=== PATIENT | female | born 1975 | race Caucasian/White ===

== ENCOUNTER 2019-11-08 16:55 | Emergency (ER) | payer OTHER ==
[~2019-11-08] VITALS: Ht 160 cm; Wt 65.8 kg
[~2019-11-08 16:55] MED LIST: PSEU30TA2 PO
[2019-11-08 17:11] VITALS: BP 112/89
[2019-11-08] MEDS ORDERED: IBUPROFEN 600 MG TABLET PO ONE ×2 (17:24→17:30)
== END 2019-11-08 17:35 | disposition home or self-care (01) ==
LOC: ER 16:55
DX: J01.90 Acute sinusitis, unspecified (principal); Z98.890 Other specified postprocedural states; Z79.899 Other long term (current) drug therapy

== ENCOUNTER 2021-05-04 08:48 | Emergency (ER) | payer MEDICAID, OTHER ==
[~2021-05-04] VITALS: Ht 160 cm; Wt 65.8 kg
[2021-05-04] MEDS ORDERED: GUAIFENESIN/D-METHORPHAN HB 5 ML UDC ONE (09:21)
[2021-05-04] MEDS ORDERED: GUAIFENESIN/D-METHORPHAN HB 5 ML UDC PO ONE (09:30)
[2021-05-04 10:05] VITALS: BP 135/75
[2021-05-04] MEDS ORDERED: GUAI1TBM19 PO (10:05)
[2021-05-04] MEDS ORDERED: PRED50TA PO (10:05)
[2021-05-04] MEDS ORDERED: BENZ-13 PO (10:05)
== END 2021-05-04 10:18 | disposition home or self-care (01) ==
LOC: ER 09:00
DX: J06.9 Acute upper respiratory infection, unspecified (principal); Z20.822 Contact with and (suspected) exposure to COVID-19
CPT/HCPCS: 71045; 87426; 99284; C9803

== ENCOUNTER 2023-04-20 23:36 | Emergency (ER) | payer MEDICAID, OTHER ==
[~2023-04-20] VITALS: Ht 160 cm; Wt 66.7 kg
[~2023-04-20 23:36] MED LIST changes: +BENZ-13 PO; +GUAI1TBM19 PO; +PRED50TA PO
[2023-04-21] MEDS ORDERED: IV NS 0.9% 1,000 ML BAG IV ONE
[2023-04-21] MEDS ORDERED: ONDANSETRON HCL/PF 4 MG/2 ML VIAL IVP ONE
[2023-04-21] MEDS ORDERED: KETOROLAC TROMETHAMINE INJ 30 MG/ML VIAL ONE (00:05)
[2023-04-21] MEDS ORDERED: ONDANSETRON HCL/PF 4 MG/2 ML VIAL ONE (00:05)
[2023-04-21 00:19] LABS: BASOPHILS % (AUTO) 0.2 % (0.0-2.0); EOSINOPHILS # (AUTO) 0.1 K/uL (0.0-0.7); EOSINOPHILS % (AUTO) 1.4 % (0.0-6.0); HEMATOCRIT 36 % (33-45); HEMOGLOBIN 11.9 g/dL (11.5-14.8); LYMPHOCYTES # (AUTO) 2.7 K/uL (0.8-4.8); LYMPHOCYTES % (AUTO) 40.6 % (20.0-44.0); MEAN CORPUSCULAR HEMOGLOBIN 28 PG (26.0-33.0); MEAN CORPUSCULAR HGB CONC 33 g/dl (31.0-36.0); MEAN CORPUSCULAR VOLUME 85 fL (82-100); MONOCYTES # (AUTO) 0.4 K/uL (0.1-1.30); MONOCYTES % (AUTO) 6.5 % (2.0-12.0); NEUTROPHILS # (AUTO) 3.4 K/uL (1.8-8.9); NEUTROPHILS % (AUTO) 51.3 % (43.0-81.0); PLATELET COUNT (AUTO) 232 K/uL (150-450); RED BLOOD CELL COUNT(AUTO) 4.23 MIL/uL (4.0-5.2); RED CELL DISTRIBUTION WIDTH 13.8 % (11.5-15.0); WHITE BLOOD COUNT (AUTO) 6.7 K/uL (4.3-11.0)
[2023-04-21] MEDS ORDERED: KETOROLAC TROMETHAMINE INJ 30 MG/ML VIAL IV ONE (00:30)
[2023-04-21 00:46] LABS: ALBUMIN 3.5 g/dL (3.4-5.0); BILIRUBIN,DIRECT 0.1 mg/dL (0.0-0.2); BILIRUBIN,TOTAL 0.2 mg/dL (0.2-1.0); CALCIUM, SERUM 9.2 mg/dL (8.5-10.1); CREATININE 0.7 mg/dL (0.6-1.3); POTASSIUM 3.8 mmol/L (3.5-5.1); TOTAL PROTEIN, SERUM 7.3 g/dL (6.4-8.2)
[2023-04-21 01:25] LABS: BILIRUBIN,URINE NEGATIVE (NEGATIVE); BLOOD, URINE NEGATIVE Ery/uL (NEGATIVE); COLOR,URINE YELLOW (YELLOW); KETONES,URINE NEGATIVE (NEGATIVE); LEUKOCYTE ESTERASE ,URINE 3+ (NEGATIVE); NITRITE, URINE NEGATIVE (NEGATIVE); PH,URINE 5.5 (5.0-8.0); PROTEIN,URINE NEGATIVE (NEGATIVE); UGLUCOSE NEGATIVE (NEGATIVE); UROBILINOGEN,URINE 0.2 EU/dL (0.2)
[2023-04-21 01:26] LABS: APPEARANCE,URINE SLIGHTLY CLOUDY (CLEAR)
[2023-04-21 01:29] LABS: ADD URINE CULTURE YES; BACTERIA,URINE Few /HPF (None Seen); RBC,URINE 0-2 /HPF (0-2); SQUAMOUS EPITHELIAL CELL,UR Few /HPF (None Seen); WBC,URINE 21-50 /HPF (0-3)
[2023-04-21 01:31] LABS: PREGNANCY TEST URINE QUAL NEGATIVE (NEGATIVE)
[2023-04-21] MEDS ORDERED: CEPH500C2 PO (04:40)
[2023-04-21] MEDS ORDERED: IBUP-1953 PO (04:40)
[2023-04-21 05:09] VITALS: BP 133/86; TEMP 98.2; O2SAT 99
== END 2023-04-21 05:35 | disposition home or self-care (01) ==
LOC: ER 23:39
DX: N39.0 Urinary tract infection, site not specified (principal); R10.32 Left lower quadrant pain
CPT/HCPCS: 99285; 74176; 96374; 71045; 96361; 96375; 85025; 80048; 87086; 83690; 80076; 84703; 81001; 36415; J1885; J2405; J7030

== ENCOUNTER → 2023-08-19 | Emergency (ER) | payer OTHER ==
[~2023-08-19] VITALS: Ht 160 cm; Wt 66.7 kg
[~2023-08-19] MED LIST changes: +CEPH500C2 PO; +IBUP-1953 PO
[2023-08-19 13:25] VITALS: BP 120/78; TEMP 98; O2SAT 98
== END | disposition home or self-care (01) ==
LOC: ER 12:37
DX: G56.92 Unspecified mononeuropathy of left upper limb (principal); Z98.890 Other specified postprocedural states; Z79.899 Other long term (current) drug therapy

== ENCOUNTER 2024-05-05 00:22 | Emergency (ER) | payer OTHER ==
[~2024-05-05] VITALS: Ht 160 cm; Wt 63.5 kg
[2024-05-05 02:34] VITALS: BP 131/82; TEMP 97.8; O2SAT 98
[2024-05-05] MEDS ORDERED: KETO10TA2 PO (03:00)
[2024-05-05] MEDS ORDERED: LIDO30AD10 TP (03:00)
[2024-05-05] MEDS ORDERED: IBUP-1957 PO (03:00)
[2024-05-05] MEDS ORDERED: CYCL10TA9 PO (03:00)
[2024-05-05] MEDS ORDERED: LIDOCAINE 5% (PATCH) 1 EA PATCH TP ONE (03:13)
[2024-05-05] MEDS ORDERED: ACETAMINOPHEN ES 500 MG TABLET ONE (03:13)
[2024-05-05] MEDS ORDERED: IBUPROFEN 400 MG TABLET ONE (03:14)
[2024-05-05] MEDS: IBUPROFEN 400 MG TABLET PO ONE (03:19)
[2024-05-05] MEDS: LIDOCAINE 5% (PATCH) 1 EA PATCH TP SCH (03:19)
[2024-05-05] MEDS: ACETAMINOPHEN ES 500 MG TABLET PO ONE (03:19)
== END 2024-05-05 03:20 | disposition home or self-care (01) ==
LOC: ER 00:25
DX: S20.229A Contusion of unspecified back wall of thorax, initial encounter (principal); R11.10 Vomiting, unspecified; Z79.52 Long term (current) use of systemic steroids; W10.8XXA Fall (on) (from) other stairs and steps, initial encounter; Y93.89 Activity, other specified; Y92.89 Other specified places as the place of occurrence of the external cause; Y99.8 Other external cause status

== ENCOUNTER 2024-08-24 17:27 | Emergency (ER) | payer BC, OTHER ==
[~2024-08-24] VITALS: Ht 165.1 cm; Wt 71.2 kg
[~2024-08-24 17:27] MED LIST changes: +CYCL10TA9 PO; +IBUP-1957 PO; +KETO10TA2 PO; +LIDO30AD10 TP
[2024-08-24 18:27] LABS: BASOPHILS % (AUTO) 0.3 % (0.0-2.0); EOSINOPHILS # (AUTO) 0.1 K/uL (0.0-0.7); EOSINOPHILS % (AUTO) 1.4 % (0.0-6.0); HEMATOCRIT 37 % (33-45); HEMOGLOBIN 12.2 g/dL (11.5-14.8); LYMPHOCYTES # (AUTO) 2.4 K/uL (0.8-4.8); LYMPHOCYTES % (AUTO) 40.4 % (20.0-44.0); MEAN CORPUSCULAR HEMOGLOBIN 28 PG (26.0-33.0); MEAN CORPUSCULAR HGB CONC 33 g/dl (31.0-36.0); MEAN CORPUSCULAR VOLUME 83 fL (82-100); MONOCYTES # (AUTO) 0.4 K/uL (0.1-1.30); MONOCYTES % (AUTO) 7.3 % (2.0-12.0); NEUTROPHILS % (AUTO) 50.6 % (43.0-81.0); PLATELET COUNT (AUTO) 230 K/uL (150-450); RED BLOOD CELL COUNT(AUTO) 4.41 MIL/uL (4.0-5.2); RED CELL DISTRIBUTION WIDTH 14.1 % (11.5-15.0)
[2024-08-24] MEDS ORDERED: PANTOPRAZOLE 40 MG VIAL ONE (18:30)
[2024-08-24 18:36] LABS: CALCIUM, SERUM 9.2 mg/dL (8.5-10.1); CARBON DIOXIDE 31 mmol/L (21-32); CHLORIDE 104 mmol/L (98-107); CREATININE 0.6 mg/dL (0.6-1.3); GLUCOSE 108 mg/dL (74-106); POTASSIUM 4.1 mmol/L (3.5-5.1); SODIUM SERUM 139 mmol/L (136-145); UREA NITROGEN, BLOOD 12 mg/dL (7-18)
[2024-08-24 18:41] LABS: ALANINE AMINOTRANSFERASE 20 U/L (12-78); ALBUMIN 3.5 g/dL (3.4-5.0); ALKALINE PHOSPHATASE 95 U/L (46-116); ASPARTATE AMINOTRANSFERASE 12 U/L (15-37); BILIRUBIN,DIRECT 0.1 mg/dL (0.0-0.2); BILIRUBIN,TOTAL 0.3 mg/dL (0.2-1.0); LIPASE 36 U/L (16-77); TOTAL PROTEIN, SERUM 7.3 g/dL (6.4-8.2)
[2024-08-24] MEDS: PANTOPRAZOLE 40 MG VIAL IV ONE (18:46)
[2024-08-24] MEDS ORDERED: PANT40TA2 PO (19:08)
[2024-08-24 19:24] VITALS: BP 133/82; TEMP 98.5; O2SAT 100
== END 2024-08-24 19:25 | disposition home or self-care (01) ==
LOC: ER 17:39
DX: I10 Essential (primary) hypertension (principal); R10.10 Upper abdominal pain, unspecified; Z79.1 Long term (current) use of non-steroidal anti-inflammatories (NSAID); Z79.52 Long term (current) use of systemic steroids; Z79.899 Other long term (current) drug therapy
CPT/HCPCS: 99285; 96374; 76705; 71045; 93005; 85025; 80048; 83690; 80076; 36415; 84484; 82962; J2470

== ENCOUNTER 2024-10-05 14:03 | Emergency (ER) | payer BC, OTHER ==
[~2024-10-05] VITALS: Ht 160 cm; Wt 67.6 kg
[~2024-10-05 14:03] MED LIST changes: +PANT40TA2 PO
[2024-10-05 14:46] LABS: PLATELET COUNT (AUTO) 250 K/uL (150-450); RED BLOOD CELL COUNT(AUTO) 4.71 MIL/uL (4.0-5.2); RED CELL DISTRIBUTION WIDTH 13.9 % (11.5-15.0); WHITE BLOOD COUNT (AUTO) 5.4 K/uL (4.3-11.0)
[2024-10-05] MEDS ORDERED: PANTOPRAZOLE 40 MG VIAL ONE (14:49)
[2024-10-05] MEDS ORDERED: KETOROLAC TROMETHAMINE 15 MG/ML VIAL ONE (14:49)
[2024-10-05 14:55] LABS: ASPARTATE AMINOTRANSFERASE 12.0 U/L (15-37); CALCIUM, SERUM 9.1 mg/dL (8.5-10.1); CREATININE 0.5 mg/dL (0.6-1.3); SODIUM SERUM 139.0 mmol/L (136-145); TOTAL PROTEIN, SERUM 7.7 g/dL (6.4-8.2); UREA NITROGEN, BLOOD 11.0 mg/dL (7-18)
[2024-10-05 14:57] LABS: APPEARANCE,URINE CLEAR (CLEAR); LEUKOCYTE ESTERASE ,URINE NEGATIVE (NEGATIVE)
[2024-10-05] MEDS: KETOROLAC TROMETHAMINE 15 MG/ML VIAL IV ONE (14:58)
[2024-10-05] MEDS: PANTOPRAZOLE 40 MG VIAL IV ONE (14:59)
[2024-10-05 15:04] LABS: BLOOD, URINE TRACE-INTA Ery/uL (NEGATIVE); NITRITE, URINE NEGATIVE (NEGATIVE); UGLUCOSE NEGATIVE (NEGATIVE)
[2024-10-05] MEDS ORDERED: IBUP-1490 PO (15:32)
[2024-10-05 15:46] VITALS: BP 120/69; O2SAT 99
[2024-10-05 17:51] LABS: SQUAMOUS EPITHELIAL CELL,UR Moderate /HPF (None Seen)
[2024-10-05 17:53] LABS: ADD URINE CULTURE NO
== END 2024-10-05 15:47 | disposition home or self-care (01) ==
LOC: ER 14:08
DX: R10.9 Unspecified abdominal pain (principal); R14.0 Abdominal distension (gaseous); I10 Essential (primary) hypertension; Z79.1 Long term (current) use of non-steroidal anti-inflammatories (NSAID); Z79.52 Long term (current) use of systemic steroids; Z79.899 Other long term (current) drug therapy; Z87.440 Personal history of urinary (tract) infections
CPT/HCPCS: 99285; 74176; 96374; 96375; 85025; 80048; 83690; 80076; 81001; 36415; J1885; J2470